=== PATIENT | female | born 1980 | race African-American/Black ===

== ENCOUNTER 2016-12-18 18:52 | Emergency (ER) | payer SELFPAY ==
[~2016-12-18] VITALS: Ht 157.5 cm; Wt 78.6 kg
[2016-12-18 19:20] VITALS: BP 131/84
[2016-12-18] MEDS ORDERED: HYDROCODONE/ACETAMINOPHEN 10-325 MG TABLET PO ONE (22:00)
[2016-12-18] MEDS ORDERED: CefTRIAXone SODIUM 1 GM/VIAL IM ONE (22:00)
[2016-12-18] MEDS ORDERED: LIDOCAINE HCL/PF 1% 2 ML VIAL IM ONE (22:00)
== END 2016-12-18 22:27 | disposition home or self-care (01) ==
LOC: EMS 19:01
DX: N75.0 Cyst of Bartholin's gland (principal); N76.0 Acute vaginitis
CPT/HCPCS: 99283; J0696; J3490